=== PATIENT | male | born 1980 | race Caucasian/White ===

== ENCOUNTER 2020-03-11 16:07 | Emergency (ER) | payer MEDICAID, SELFPAY ==
[~2020-03-11] VITALS: Ht 175.3 cm; Wt 74.8 kg
[2020-03-11 16:10] VITALS: BP 119/89
[2020-03-11 16:45] VITALS: BP 119/89
== END 2020-03-11 16:44 | disposition home or self-care (01) ==
LOC: MED 16:07 → EEVIPCON 16:07 → MED 16:44
DX: Z20.828 Contact with and (suspected) exposure to other viral communicable diseases (principal); R05 Cough; R06.2 Wheezing
CPT/HCPCS: 36415; 99283

== ENCOUNTER 2020-05-07 12:02 | Emergency (ER) | payer MEDICAID, SELFPAY ==
[~2020-05-07] VITALS: Ht 175.3 cm; Wt 70.3 kg
[2020-05-07 12:15] VITALS: BP 134/86
--- NOTE | 2020-05-07 12:27 | NUR ---
PT AMBULATED TO BED 2.
--- NOTE | 2020-05-07 12:30 | NUR ---
EUGENIO CALDERA AT BEDSIDE
--- NOTE | 2020-05-07 12:32 | NUR ---
COVERING PRIMARY RN FOR LUNCH RELIEF RECEIVED A 39/M FROM TRIAGE WITH A C/O PRESISTANT COUGH. PT REPORTS THAT HE WAS SEEN IN ED AND SWABBED FOR COVID WITH A NEGATIVE RESULT. MILD WHEEZING HEARD IN BILATERAL LUNG BASES. NO DISTRESS NOTED. IN BED FOR MSE.
[2020-05-07] MEDS: methylPREDNISolone SS 125 MG/2 ML VIAL IM ONE (12:57)
[2020-05-07] MEDS: ALBUTEROL SULFATE/IPRATROPIU 3 ML SOL IH ONE (12:57)
--- NOTE | 2020-05-07 12:58 | NUR ---
ADMINISTERED [facility]AT[facility] DR[facility] ORDERED ENCOURGAED PATIENT FOR INTERMITTENT DEEP BREATHING AND COUGH
[2020-05-07 14:42] VITALS: BP 134/86
--- NOTE | 2020-05-07 14:43 | NUR ---
Patient discharged with v/s stable. Written and verbal after care instructions given and explained. Patient alert, oriented and verbalized understanding of instructions. Ambulatory with steady gait. All questions addressed prior to discharge. ID band removed. Patient advised to follow up with PMD. Rx of PREDNISONE, ALBUTEROL, PROMETHAZINE, AND LORATADINE given. Patient educated on indication of medication including possible reaction and side effects. Opportunity to ask questions provided and answered.
== END 2020-05-07 14:43 | disposition home or self-care (01) ==
LOC: MED 12:02
DX: J20.9 Acute bronchitis, unspecified (principal); R03.0 Elevated blood-pressure reading, without diagnosis of hypertension
CPT/HCPCS: 71045; 94640; 96372; 99283; J2930; Q0092